=== PATIENT | female | born 1980 | race Caucasian/White ===

== ENCOUNTER 2018-12-18 01:30 | Emergency (ER) | payer MEDICAID ==
[~2018-12-18] VITALS: Ht 162.6 cm; Wt 72.0 kg
[2018-12-18] MEDS ORDERED: MECLIZINE 12.5MG TABLET PO ONE (07:00)
[2018-12-18] MEDS ORDERED: ONDANSETRON 4MG ODT PO ONE (07:00)
[2018-12-18 07:09] VITALS: BP 111/72
== END 2018-12-18 07:10 | disposition home or self-care (01) ==
LOC: ER 01:30
DX: J06.9 Acute upper respiratory infection, unspecified (principal); R42 Dizziness and giddiness; F17.200 Nicotine dependence, unspecified, uncomplicated
CPT/HCPCS: 81025; 99283; J8597; Q0162